=== PATIENT | male | born 1995 | race African-American/Black ===

== ENCOUNTER 2023-08-10 19:26 | Emergency (ER) | payer OTHER ==
[2023-08-10 19:54] VITALS: RESP 18; TEMP 98.4
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
--- NOTE | 2023-08-10 21:18 | XR ---
EXAMINATION: XR chest 2V: 08/10/2023 9:14 PM CLINICAL INDICATION: Weakness TECHNIQUE: Departmental protocol COMPARISON: None FINDINGS: The lungs are clear. The pleural spaces are negative. The cardiac silhouette is not enlarged. The skeletal structures and soft tissues are negative for acute findings. IMPRESSION: No acute radiographic process.
[2023-08-10] MEDS: MORPHINE SULFATE 2 MG/ML SYRINGE IVP ONE (21:41)
[2023-08-10] MEDS: SODIUM CHLORIDE 0.9% 1,000 ML IV STA (21:41)
[2023-08-10 22:20] VITALS: BP 110/64; PULSE 85
[2023-08-10 22:27] LABS: ALT 53 U/L (4-49); African American GFR (CKD) >90 (>60 ml/min/1.73 sqM); Anion Gap 10 mmol/L; Blood Urea Nitrogen 12 mg/dL (9-20); Calcium 9.1 mg/dL (8.4-10.2); Carbon Dioxide 23 mmol/L (22-30); Chloride 108 mmol/L (98-107); Glucose 73 mg/dL (74-99); Non-African American GFR(CKD) >90 (>60 ml/min/1.73 sqM); Sodium 141 mmol/L (137-145); Total Bilirubin 1.4 mg/dL (0.2-1.3)
[2023-08-10 22:32] LABS: Partial Thromboplastin Time 21.5 sec (22.0-30.0); Prothrombin Time 10.9 sec (10.0-12.5)
[2023-08-10 22:39] LABS: AST 70 U/L (17-59); Albumin 4.5 g/dL (3.5-5.0); Alkaline Phosphatase 85 U/L (38-126); Magnesium 2.3 mg/dL (1.6-2.3); Potassium 4.9 mmol/L (3.5-5.1)
[2023-08-10 22:50] LABS: Anisocytosis Slight; Basophils % (A) 0 %; Eosinophils # (A) 0.2 k/uL (0-0.7); Eosinophils % (A) 2 %; HCT 40.9 % (39.0-53.0); Lymphocytes # (A) 2.5 k/uL (1.0-4.8); Lymphocytes % (A) 35 %; MCH 27.4 pg (25.0-35.0); MCHC 31.7 g/dL (31.0-37.0); MCV 86.6 fL (80.0-100.0); Mean Platelet Volume 7.7; Monocytes # (A) 0.4 k/uL (0-1.0); Monocytes % (A) 5 %; Neutrophils # (A) 3.9 k/uL (1.3-7.7); Neutrophils % (A) 56 %; Platelet Count 238 k/uL (150-450); RBC 4.72 m/uL (4.30-5.90); RDW 19.8 % (11.5-15.5); WBC 7.1 k/uL (3.8-10.6)
[2023-08-11 03:32] LABS: Vitamin B12 <150.0 pg/mL (200.0-944.0)
== END 2023-08-10 23:17 | disposition home or self-care (01) ==
LOC: EC 19:26
DX: R20.2 Paresthesia of skin (principal); R53.1 Weakness; F17.200 Nicotine dependence, unspecified, uncomplicated
CPT/HCPCS: 36415; 80053; 82607; 83605; 83735; 85025; 85610; 85730; 71046; 99285; 96374; 96361 ×2; J2270